=== PATIENT | female | born 1975 | race Two or more races ===

== ENCOUNTER 2023-12-06 12:06 | Emergency (ER) | payer OTHER ==
[~2023-12-06] VITALS: Ht 157.5 cm; Wt 59.9 kg
[2023-12-06] MEDS ORDERED: LORAZEPAM INJ 2 MG/ML VIAL ONE (12:32)
[2023-12-06] MEDS ORDERED: MECLIZINE HCL 25 MG TABLET ONE (12:34)
[2023-12-06] MEDS: MECLIZINE HCL 12.5 MG TABLET PO ONE (12:35)
[2023-12-06] MEDS: IV NS 0.9% 1,000 ML BAG IV ONE (12:35)
[2023-12-06] MEDS: LORAZEPAM INJ 2 MG/ML VIAL IV ONE (12:55)
[2023-12-06 13:16] LABS: BASOPHILS % (AUTO) 0.3 % (0.0-2.0); EOSINOPHILS # (AUTO) 0.1 K/uL (0.0-0.7); EOSINOPHILS % (AUTO) 1.3 % (0.0-6.0); HEMATOCRIT 44 % (33-45); LYMPHOCYTES # (AUTO) 2.1 K/uL (0.8-4.8); LYMPHOCYTES % (AUTO) 19.5 % (20.0-44.0); MEAN CORPUSCULAR HEMOGLOBIN 30 PG (26.0-33.0); MEAN CORPUSCULAR HGB CONC 35 g/dl (31.0-36.0); MEAN CORPUSCULAR VOLUME 86 fL (82-100); MONOCYTES # (AUTO) 0.9 K/uL (0.1-1.30); NEUTROPHILS # (AUTO) 7.6 K/uL (1.8-8.9); NEUTROPHILS % (AUTO) 70.9 % (43.0-81.0); PLATELET COUNT (AUTO) 240 K/uL (150-450); RED BLOOD CELL COUNT(AUTO) 5.07 MIL/uL (4.0-5.2); RED CELL DISTRIBUTION WIDTH 13.4 % (11.5-15.0); WHITE BLOOD COUNT (AUTO) 10.8 K/uL (4.3-11.0)
[2023-12-06 13:54] LABS: CALCIUM, SERUM 9.3 mg/dL (8.5-10.1); CREATININE 0.8 mg/dL (0.6-1.3); POTASSIUM 4.3 mmol/L (3.5-5.1)
[2023-12-06] MEDS ORDERED: MECL-159 PO (14:11)
[2023-12-06 14:50] VITALS: BP 130/82; TEMP 98; O2SAT 99
== END 2023-12-06 14:51 | disposition home or self-care (01) ==
LOC: ER 12:19
DX: H81.10 Benign paroxysmal vertigo, unspecified ear (principal); F17.200 Nicotine dependence, unspecified, uncomplicated
CPT/HCPCS: 99284; 96360; 93005; 85025; 80048; 36415; J8597; J2060; J7030